=== PATIENT | female | born 1970 | race Caucasian/White ===

== ENCOUNTER 2016-11-25 13:14 | Emergency (ER) | payer SELFPAY ==
[2016-11-25 13:41] VITALS: RESP 18; TEMP 98.2
--- NOTE | 2016-11-25 16:32 | EDPHY ---
H & P Stated Complaint: ? psych/2 weeks ago stopped drinking/depression/anxiety/not eating/ HPI/ROS: CHIEF COMPLAINT: HISTORY OF PRESENT ILLNESS: REVIEW OF SYSTEMS: Ten systems reviewed and are negative unless otherwise noted in the HPI PAST MEDICAL HISTORY: SOCIAL HISTORY: FAMILY HISTORY: EXAMINATION General Appearance: Alert, no distress Head: normocephalic, atraumatic Eyes: Pupils equal and round, no conjunctival pallor or injection ENT, Mouth: Mucous membranes moist Neck: Normal inspection, supple, non-tender Respiratory: Lungs are clear to auscultation Cardiovascular: Regular rate and rhythm Gastrointestinal: Abdomen is soft and nontender Back: non-tender, no bony abnormalities Neurological: A&O, nonfocal, normal gait Skin: Warm and dry, no rash Extremities: Nontender, no pedal edema Psychiatric: Mood and affect normal DIFFERENTIAL DIAGNOSES: Including but not limited to MDM: SUPERVISION: Source: Patient Exam Limitations: No limitations - Personal History LMP (Females 10-55): Over 28 Days Ago Current Tetanus/Diphtheria Vaccine: Unsure - Medical/Surgical History Hx Asthma: No Hx Chronic Respiratory Disease: No Hx Diabetes: No Hx Cardiac Disease: No Hx Renal Disease: No Hx Cirrhosis: No Hx Alcoholism: No Hx HIV/AIDS: No Hx Splenectomy or Spleen Trauma: No Other PMH: depression - Social History Smoking Status: Former smoker Constitutional: Initial Vital Signs Temperature (C) 36.8 C 11/25/16 13:35 Heart Rate 90 11/25/16 13:35 Respiratory Rate 18 11/25/16 13:35 Blood Pressure 106/76 11/25/16 13:35 O2 Sat (%) 96 11/25/16 13:35 O2 Delivery Mode Room Air Allergies/Adverse Reactions: No Known Allergies Allergy (Unverified 11/25/16 13:35) Home Medications: Medication Instructions Recorded NK [No Known Home Meds] 11/25/16 Departure - Departure Referrals: NONE *PRIMARY CARE P,. [Primary Care Provider] - As per Instructions
--- NOTE | 2016-11-25 16:43 | EDPHY ---
H & P Stated Complaint: ? psych/2 weeks ago stopped drinking/depression/anxiety/not eating/ HPI/ROS: CHIEF COMPLAINT: Weakness, decreased appetite, hearing loss, depression HISTORY OF PRESENT ILLNESS: Patient complains of weakness, lack of energy, no appetite, fatigue, loss of hearing in the left ear, depression. Symptoms started approximately 4 weeks ago when she returned back from a trip from [place]. They had her abruptly and have been constant ever since. She has had no suicidal ideation or attempt. No homicidal ideation. She does have history of depression the feels this is of course related. No trauma or injury. No fever or complaints that would suggest illness. She does not have any primary care physician or therapist. She has not ever seen a psychiatrist. She is not taking medications. No other associated complaints or modifying factors. She does report that she used to abuse alcohol with a heavy intake every other day until approximately 4 weeks ago. She stopped abruptly. She also reports that she smoked heavily until 4 weeks ago and stopped abruptly. REVIEW OF SYSTEMS: Ten systems reviewed and are negative unless otherwise noted in the HPI PAST MEDICAL HISTORY: Depression. SOCIAL HISTORY: Currently unemployed. Previously worked as a teacher. Smoked until 4 weeks ago. Drink alcohol every other day until 4 weeks ago FAMILY HISTORY: Noncontributory EXAMINATION General Appearance: Alert, no distress, unkempt. Head: normocephalic, atraumatic Eyes: Pupils equal and round, no conjunctival pallor or injection ENT, Mouth: Mucous membranes moist. Airway widely patent. Hearing intact to normal conversation on the right ear. Decreased hearing on the left ear. EACs are clear. There is a moderate serous otitis media on the left without perforation or acute otitis media. No mastoiditis. Neck: Normal inspection, supple, non-tender. Painless range of motion all planes Respiratory: Lungs are clear to auscultation Cardiovascular: Regular rate and rhythm. No murmur. Pulses intact distally Gastrointestinal: Abdomen is soft and nontender Back: non-tender, no bony abnormalities Neurological: GCS 15. Cranial nerves 2-12 grossly intact A&O, nonfocal, normal gait. No tremor. No pronator drift. No dysmetria Skin: Warm and dry, no rash. No petechiae or purpura Extremities: Nontender, no pedal edema Psychiatric: Depressed mood and flat affect. denies suicidal ideation or homicidal ideation. DIFFERENTIAL DIAGNOSES: Including but not limited to depression, weakness, dehydration, apathy, anergy, dysthymia, hypothyroid MDM: 4:30 p.m. Weakness, energy, apathy and decrease hearing in the left ear. No trauma or injury. No suicidal ideation. No homicidal ideation. The patient does exhibit see evidence have depression without wrist to self or others. Laboratory studies have been ordered as she has not been eating well. His vital signs are stable. She is in no acute distress. 5:00 p.m. Re-evaluated the patient. Laboratory studies thus far are unremarkable. Vital signs stable. She remains calm and in no acute distress. 5:30 p.m. Laboratory studies within normal limits. TSH pending. 6:00 p.m. Laboratory studies are all within normal limits. I have re-evaluated the patient she is comfortable. She says that she feels depressed but she feels that she can handle the situation. She lives with her parents and does have support at home. She has no access to weapons. She has no thoughts of self- harm toward herself. She has no thoughts of harm to anyone else. She would like to be discharged home. She would like to follow up with primary care physician and mental health professionals. I will provide the number for [facility] for her. We discussed return to emergency department for any thoughts of self-harm. She is comfortable with this plan and discharged home stable condition. SUPERVISION: Patient was evaluated in conjunction with the supervising physician. Please see their note for details. Source: Patient Exam Limitations: No limitations - Personal History LMP (Females 10-55): Over 28 Days Ago Current Tetanus/Diphtheria Vaccine: Unsure - Medical/Surgical History Hx Asthma: No Hx Chronic Respiratory Disease: No Hx Diabetes: No Hx Cardiac Disease: No Hx Renal Disease: No Hx Cirrhosis: No Hx Alcoholism: No Hx HIV/AIDS: No Hx Splenectomy or Spleen Trauma: No Other PMH: depression - Social History Smoking Status: Former smoker Constitutional: Initial Vital Signs Temperature (C) 98.2 F 11/25/16 13:35 Heart Rate 90 11/25/16 13:35 Respiratory Rate 18 11/25/16 13:35 Blood Pressure 106/76 11/25/16 13:35 O2 Sat (%) 96 11/25/16 13:35 O2 Delivery Mode Room Air Allergies/Adverse Reactions: No Known Allergies Allergy (Unverified 11/25/16 13:35) Home Medications: Medication Instructions Recorded NK [No Known Home Meds] 11/25/16 Medical Decision Making - Data Points Laboratory Results: Laboratory Results 11/25/16 17:11 11/25/16 17:11 11/25/16 11/25/16 11/25/16 17:11 17:11 17:11 WBC RBC Hgb Hct MCV MCH MCHC RDW Plt Count MPV Neut % (Auto) Lymph % (Auto) [place] % (Auto) Eos % (Auto) Baso % (Auto) Nucleat RBC Rel Count Absolute Neuts (auto) Absolute Lymphs (auto) Absolute Monos (auto) Absolute Eos (auto) Absolute Basos (auto) Absolute Nucleated RBC Immature Gran % Immature Gran # Sodium 135 mEq/L mEq/L (134-144) Potassium 4.3 mEq/L mEq/L (3.5-5.2) Chloride 98 mEq/L mEq/L (97-110) Carbon Dioxide 25 mEq/l mEq/l (22-31) Anion Gap 12 mEq/L mEq/L (8-16) BUN 9 mg/dL mg/dL (7-23) Creatinine 0.8 mg/dL mg/dL (0.6-1.0) Estimated GFR > 60 Glucose 105 mg/dL H mg/dL (70-100) Calcium 9.7 mg/dL mg/dL (8.5-10.4) Total Bilirubin 0.7 mg/dL mg/dL (0.1-1.4) Conjugated Bilirubin 0.4 mg/dL mg/dL (0.0-0.5) Unconjugated Bilirubin 0.3 mg/dL mg/dL (0.0-1.1) AST 18 IU/L IU/L (14-46) ALT 37 IU/L IU/L (9-52) Alkaline Phosphatase 43 IU/L IU/L (38-126) Total Protein 7.1 g/dL g/dL (6.3-8.2) Albumin 4.1 g/dL g/dL (3.5-5.0) Lipase 137 IU/L IU/L (23-300) TSH 1.090 uIU/mL uIU/mL (0.465-4.680) Beta HCG, Qual NEGATIVE Urine Color YELLOW Urine Appearance HAZY Urine pH 6.0 (5.0-7.5) Ur Specific [place] 1.002 (1.002-1.030) Urine Protein NEGATIVE (NEGATIVE) Urine Ketones NEGATIVE (NEGATIVE) Urine Blood NEGATIVE (NEGATIVE) Urine Nitrate NEGATIVE (NEGATIVE) Urine Bilirubin NEGATIVE (NEGATIVE) Urine Urobilinogen NEGATIVE EU EU (0.2-1.0) Ur Leukocyte Esterase NEGATIVE (NEGATIVE) Urine Glucose NEGATIVE (NEGATIVE) 11/25/16 17:11 WBC 8.87 10^3/uL 10^3/uL (3.80-9.50) RBC 4.96 10^6/uL 10^6/uL (4.18-5.33) Hgb 15.3 g/dL g/dL (12.6-16.3) Hct 44.4 % % (38.0-47.0) MCV 89.5 fL fL (81.5-99.8) MCH 30.8 pg pg (27.9-34.1) MCHC 34.5 g/dL g/dL (32.4-36.7) RDW 12.8 % % (11.5-15.2) Plt Count 263 10^3/uL 10^3/uL (150-400) MPV 9.8 fL fL (8.7-11.7) Neut % (Auto) 73.3 % % (39.3-74.2) Lymph % (Auto) 16.0 % % (15.0-45.0) [place] % (Auto) 10.1 % % (4.5-13.0) Eos % (Auto) 0.1 % L % (0.6-7.6) Baso % (Auto) 0.2 % L % (0.3-1.7) Nucleat RBC Rel Count 0.0 % % (0.0-0.2) Absolute Neuts (auto) 6.49 10^3/uL 10^3/uL (1.70-6.50) Absolute Lymphs (auto) 1.42 10^3/uL 10^3/uL (1.00-3.00) Absolute Monos (auto) 0.90 10^3/uL H 10^3/uL (0.30-0.80) Absolute Eos (auto) 0.01 10^3/uL L 10^3/uL (0.03-0.40) Absolute Basos (auto) 0.02 10^3/uL 10^3/uL (0.02-0.10) Absolute Nucleated RBC 0.00 10^3/uL 10^3/uL (0-0.01) Immature Gran % 0.3 % % (0.0-1.1) Immature Gran # 0.03 10^3/uL 10^3/uL (0.00-0.10) Sodium Potassium Chloride Carbon Dioxide Anion Gap BUN Creatinine Estimated GFR Glucose Calcium Total Bilirubin Conjugated Bilirubin Unconjugated Bilirubin AST ALT Alkaline Phosphatase Total Protein Albumin Lipase TSH Beta HCG, Qual Urine Color Urine Appearance Urine pH Ur Specific [place] Urine Protein Urine Ketones Urine Blood Urine Nitrate Urine Bilirubin Urine Urobilinogen Ur Leukocyte Esterase Urine Glucose Departure - Departure Disposition: Home, Routine, Self-Care Clinical Impression: Weakness Depression Qualifiers: Depression Type: major depressive disorder Major depression recurrence: recurrent Active/Remission status: currently active Major depression episode severity: mild Qualified Code(s): F33.0 - Major depressive disorder, recurrent, mild Condition: Good Instructions: Depression (ED) Additional Instructions: 1. Follow up with primary care physician and/or [facility] to discuss possibility of medication and therapy 2. Return to the ER for any thoughts of self-harm or harm towards others Referrals: Timothy Ludwig MD [Medical Doctor] - As per Instructions [facility] [Clinic] - As per Instructions NONE *PRIMARY CARE P,. [Primary Care Provider] - As per Instructions Calvin Galvan MD [Medical Doctor] - As per Instructions
[2016-11-25 17:20] LABS: % IMMATURE GRANULYOCYTES 0.3 % (0.0-1.1); ABSOLUTE IMMATURE GRANULOCYTES 0.03 10^3/uL (0.00-0.10); ADD DIFF? NO; ADD MORPH? NO; ADD SCAN? NO; ATYPICAL LYMPHOCYTE FLAG 30 (0-99); FRAGMENT RBC FLAG 0 (0-99); HEMATOCRIT 44.4 % (38.0-47.0); HEMOGLOBIN 15.3 g/dL (12.6-16.3); LEFT SHIFT FLG 0 (0-99); LIPEMIA HEMOLYSIS FLAG 90 (0-99); MEAN CELL HEMOGLOBIN 30.8 pg (27.9-34.1); MEAN CELL HEMOGLOBIN CONCENTR. 34.5 g/dL (32.4-36.7); MEAN CELL VOLUME 89.5 fL (81.5-99.8); MEAN PLATELET VOLUME 9.8 fL (8.7-11.7); PLATELET CLUMPS FLAG 0 (0-99); PLATELET COUNT 263 10^3/uL (150-400); RED BLOOD CELL COUNT 4.96 10^6/uL (4.18-5.33); RED CELL DISTRIBUTION WIDTH 12.8 % (11.5-15.2)
[2016-11-25 17:24] LABS: COLOR YELLOW; LEUKOCYTE ESTERASE,URINE NEGATIVE (NEGATIVE); NITRITE,URINE NEGATIVE (NEGATIVE)
[2016-11-25 17:39] LABS: ALANINE AMINOTRANSFERASE 37 IU/L (9-52); ALBUMIN 4.1 g/dL (3.5-5.0); ALKALINE PHOSPHATASE 43 IU/L (38-126); ANION GAP 12 mEq/L (8-16); ASPARTATE AMINOTRANSFERASE 18 IU/L (14-46); BILIRUBIN,TOTAL 0.7 mg/dL (0.1-1.4); BILIRUBIN-CONJUGATED 0.4 mg/dL (0.0-0.5); BILIRUBIN-UNCONJUGATED 0.3 mg/dL (0.0-1.1); CALCIUM 9.7 mg/dL (8.5-10.4); CARBON DIOXIDE 25 mEq/l (22-31); CHLORIDE 98 mEq/L (97-110); CREATININE 0.8 mg/dL (0.6-1.0); GLOMERULAR FILTRATION RATE > 60; GLUCOSE 105 mg/dL (70-100); POTASSIUM 4.3 mEq/L (3.5-5.2); SODIUM 135 mEq/L (134-144); TOTAL PROTEIN 7.1 g/dL (6.3-8.2)
[2016-11-25 18:48] VITALS: BP 115/74; PULSE 89; O2SAT 95
== END 2016-11-25 18:46 | disposition home or self-care (01) ==
DX: F33.0 Major depressive disorder, recurrent, mild (principal); R53.1 Weakness; Z87.891 Personal history of nicotine dependence